=== PATIENT | male | born 1965 | race Caucasian/White ===

== ENCOUNTER 2016-11-04 09:40 | Inpatient (IN) | payer OTHER ==
[2016-11-04 09:59] LABS: #Eosinphils 0.1 thou/uL (0.0-0.7); #Lymphocytes 2.5 thou/uL (1.20-3.40); #Monocytes 0.7 thou/uL (0.11-0.59); #Neutrophils 9.2 thou/uL (1.40-6.50); %Basophils 0.1 % (0.0-1.0); %Eosinophils 1.1 % (0.0-10.0); %Lymphocytes 19.8 % (21.0-51.0); %Monocytes 5.5 % (0.0-10.0); Hematocrit 46.7 % (42.0-52.0); Mean Platelet Volume 6.2 fL (7.4-10.4); Red Blood Cell (RBC) Count 5.15 mill/uL (4.70-6.10); White Blood Cell (WBC) Count 12.5 thou/uL (4.8-10.8)
[2016-11-04 10:21] LABS: ALT (SGPT) 68 U/L (8-55); AST (SGOT) 54 U/L (5-34); Alkaline Phosphatase 64 U/L (40-150); Anion Gap 14 mmol/L (10-20); BUN (Urea Nitrogen) 16 mg/dL (8.9-20.6); Bilirubin, Total 0.5 mg/dL (0.2-1.2); Calc. Creatinine Clearance 0 mL/min (70-130); Calcium 8.9 mg/dL (7.8-10.44); Carbon Dioxide 21 mmol/L (22-29); Chloride 108 mmol/L (98-107); Estimated GFR-MDRD 73; Globulin 3.2 g/dL (2.4-3.5); Protein, Total 7.1 g/dL (6.0-8.3)
[2016-11-04] MEDS ORDERED: Ketorolac Tromethamine 30 MG/ML VIAL ONE ×2 (11:01→13:02)
[2016-11-04] MEDS ORDERED: Acetaminophen 500 MG TAB ONE (11:01)
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
[2016-11-04] MEDS ORDERED: Lidocaine 2% PF 10 ML AMP (For Epidural Use) ONE (11:53)
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
[2016-11-04] MEDS ORDERED: Neomycin-Polymyxin 1 ML AMP ONE ×2 (12:26→14:23)
[2016-11-04] MEDS ORDERED: Fentanyl 100 MCG/2 ML VIAL ONE ×2 (12:31→13:36)
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
--- NOTE | 2016-11-04 12:38 | RAD ---
LEFT ANKLE 2 VIEWS: Date: 11/04/16 HISTORY: Deformity. COMPARISON: None. FINDINGS: Comminuted, possibly open, extraarticular distal fibular and tibial metadiaphyseal fractures with an terior displacement one shaft width, and mild valgus angulation. Ankle mortise appears to be congrue nt. IMPRESSION: Likely open, comminuted, displaced tibial and fibular fractures. POS: CET
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
[2016-11-04] MEDS ORDERED: Ondansetron HCl/PF 4 MG/2 ML Vial ONE (13:02)
[2016-11-04] MEDS ORDERED: Succinylcholine Chloride 20 MG/ML 10 ml SYRINGE FS ONE (13:02)
[2016-11-04] MEDS ORDERED: Dexamethasone 20 MG/5 ML VIAL ONE (13:02)
[2016-11-04] MEDS ORDERED: Glycopyrrolate 0.2 MG/ML 5 ML SYRINGE ONE (13:02)
[2016-11-04] MEDS ORDERED: Propofol 200 MG/20 ML VIAL ONE (13:02)
[2016-11-04] MEDS ORDERED: Lidocaine 1% PF 5 ML VIAL ONE (13:02)
[2016-11-04] MEDS ORDERED: Dextrose 5% in Water 1,000 ML IV PRN (13:45)
[2016-11-04] MEDS ORDERED: Ondansetron ODT 4 MG TAB PO PRN (13:45)
[2016-11-04] MEDS ORDERED: Ondansetron HCl/PF 4 MG/2 ML Vial IVP PRN ×2 (13:45→14:25)
[2016-11-04] MEDS ORDERED: Rib Fracture Protocol PO SCH (13:45)
[2016-11-04] MEDS ORDERED: Dextrose 50% Abboject 50 ML SYRINGE SLOW IVP PRN (13:45)
[2016-11-04] MEDS ORDERED: Bupivacaine HCl 0.5%/Epinephrine 1:200,000/PF 30 ml Vial ONE (14:23)
[2016-11-04] MEDS ORDERED: Promethazine HCl 25 MG/ML VIAL IM PRN (14:25)
[2016-11-04] MEDS ORDERED: Meperidine HCl/PF 25 MG/ML VIAL SLOW IVP PRN (14:25)
[2016-11-04] MEDS ORDERED: HYDROmorphone 2 MG/ML VIAL SLOW IVP PRN (14:25)
[2016-11-04] MEDS ORDERED: Promethazine HCl 25 MG/ML VIAL SLOW IVP PRN (14:25)
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
[2016-11-04] MEDS ORDERED: Cyclobenzaprine 10 MG TAB PO PRN (15:00)
--- NOTE | 2016-11-04 15:31 | OP ---
DATE OF OPERATION: 11/04/2016 PREOPERATIVE DIAGNOSIS: Comminuted distal shaft fracture on the left tibia and fibula, grade I open . POSTOPERATIVE DIAGNOSIS: Comminuted distal shaft fracture on the left tibia and fibula, grade I ope n. PROCEDURES PERFORMED: 1. Irrigation and debridement of the left leg. 2. Open reduction internal fixation of the left distal tibial shaft. SURGEON: Richy Zurita M.D. ANESTHESIA: General. TECHNIQUE: The patient was given preoperative IV antibiotics, taken to the operating room, placed i n supine position. Satisfactory general anesthesia was performed. The left lower extremity was akilah rilely prepped and draped in the usual fashion. After exsanguination of the tourniquet, the left th igh was raised to 300 mmHg. The patient had a 1 cm laceration on the medial aspect of the leg just anterior to the Achilles tendon region. This was opened up for a total of 2 cm as very close to the comminuted fracture of the tibial shaft and did constitute grade I open injury. This wound was surgical endoscopist iously irrigated with antibiotic solution using the high-speed call center director. A longitudinal incision w as then made on the medial aspect of the leg over the medial aspect of the tibia and the fracture ar ea along with the other 2 cm laceration again was copiously irrigated with the antibiotic solution w ith a high speed call center director. There was comminution of the tibial shaft fracture. The fractures were reduced. The fragments were put together and a 6-hole distal tibial medial Synthes locking plate w as placed over the medial aspect of the tibia and held there with 2 bone clamps and then initially i nternally fixed with two 3.5 cortical screws proximally and two 2.7 locking screws distally. This w as all performed under fluoroscopic visualization. Once it was verified that the fractures were in good alignment, additional 3.5 locking screws were placed in the shaft and additional 2.7 locking sc rews were placed distally. The comminuted fracture was bone grafted with 10 mL of bone putty along with the fragments of bone that were from the tibia. The wounds were then closed using 0 Vicryl for the fat and subcutaneous tissue, and the skin was closed with 3-0 Rapide. The wounds were then inf iltrated with 30 mL of 0.5% Marcaine with epinephrine. Sterile dressing was applied. Tourniquet wa s released. The patient was placed in a boot. He was awakened, extubated, and transferred to the r ecovery room in stable condition. ESTIMATED BLOOD LOSS: 100 mL COMPLICATIONS: None. TOURNIQUET TIME: 63 minutes.
[2016-11-04] MEDS: Gabapentin 300 MG CAP PO SCH ×2 (16:25→21:32)
[2016-11-04] MEDS ORDERED: Iopamidol 370 76% 100 ML VIAL ONE (16:47)
--- NOTE | 2016-11-04 17:17 | RAD ---
EXAM: INTRAOPERATIVE FLUOROSCOPY 11/04/16 HISTORY: Fracture. COMPARISON: 11/04/16 at 9:58 a.m. FINDINGS: Three intraoperative fluoroscopic views demonstrate placement of a metallic plate with screws at the level of the distal tibia. Fracture fragments are present. Mildly displaced distal fibula fracture is identified. EXPOSURE: 15.7 seconds. 0.3 mGy. IMPRESSION: Fluoroscopy as above. POS: LIV
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
[2016-11-04] MEDS: Acetaminophen 500 MG TAB PO SCH (18:08)
[2016-11-04] MEDS: traMADol HCl 50 MG TAB PO SCH (18:08)
[2016-11-04] MEDS: Ibuprofen 800 MG TAB PO SCH (18:08)
[2016-11-05] MEDS: traMADol HCl 50 MG TAB PO SCH ×5 (00:02→23:37)
[2016-11-05] MEDS: Ibuprofen 800 MG TAB PO SCH ×5 (00:02→23:36)
[2016-11-05] MEDS: Acetaminophen 500 MG TAB PO SCH ×5 (00:03→23:36)
[2016-11-05 05:54] LABS: #Lymphocytes 1.1 thou/uL (1.20-3.40); #Monocytes 1.1 thou/uL (0.11-0.59); #Neutrophils 8.5 thou/uL (1.40-6.50); %Basophils 0.1 % (0.0-1.0); %Eosinophils 0.2 % (0.0-10.0); %Lymphocytes 10.2 % (21.0-51.0); %Monocytes 10.1 % (0.0-10.0); Hematocrit 37.6 % (42.0-52.0); Mean Platelet Volume 6.9 fL (7.4-10.4); White Blood Cell (WBC) Count 10.7 thou/uL (4.8-10.8)
[2016-11-05 06:20] LABS: Anion Gap 11 mmol/L (10-20); BUN (Urea Nitrogen) 14 mg/dL (8.9-20.6); Calc. Creatinine Clearance 0 mL/min (70-130); Calcium 8.7 mg/dL (7.8-10.44); Carbon Dioxide 25 mmol/L (22-29); Chloride 104 mmol/L (98-107); Estimated GFR-MDRD 67; Magnesium 1.9 mg/dL (1.6-2.6); Phosphorus 2.1 mg/dL (2.3-4.7)
[2016-11-05] MEDS: Gabapentin 300 MG CAP PO SCH ×3 (09:01→20:17)
[2016-11-05 09:05] VITALS: BMI 32.1
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
[2016-11-05] MEDS ORDERED: Docusate 100 MG CAP PO SCH (20:30)
[2016-11-05] MEDS ORDERED: Senokot 8.6 MG TAB PO SCH (20:30)
[2016-11-06] MEDS: Acetaminophen 500 MG TAB PO SCH ×2 (05:28→12:42)
[2016-11-06] MEDS: traMADol HCl 50 MG TAB PO SCH ×2 (05:28→12:42)
[2016-11-06] MEDS: Ibuprofen 800 MG TAB PO SCH (05:28)
[2016-11-06] MEDS: Gabapentin 300 MG CAP PO SCH ×2 (07:58→14:49)
[2016-11-06] MEDS ORDERED: Docusate 100 MG CAP PO SCH (09:00)
[2016-11-06] MEDS ORDERED: Senokot 8.6 MG TAB PO SCH (09:00)
[2016-11-06 12:27] VITALS: BP 126/76; TEMP 97.9
[2016-11-06] MEDS ORDERED: Ibuprofen 800 MG TAB PO SCH (14:00)
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
== END 2016-11-06 15:45 | disposition home or self-care (01) | DRG 493 ==
LOC: ERS 09:40 → SDC 12:17 → SURG A 16:00
PROVIDERS: ADMIT Surgery; ATTEND Surgery
PROC: 0QSH04Z Reposition Left Tibia with Internal Fixation Device, Open Approach (ICD-10-PCS; principal; 2016-11-04)
PROC: 0HQ1XZZ Repair Face Skin, External Approach (ICD-10-PCS; 2016-11-04)
DX: S82.842B Displaced bimalleolar fracture of left lower leg, initial encounter for open fracture type I or II (principal); S22.42XA Multiple fractures of ribs, left side, initial encounter for closed fracture; S02.32XA Fracture of orbital floor, left side, initial encounter for closed fracture; S02.40DA Maxillary fracture, left side, initial encounter for closed fracture; V23.4XXA Motorcycle driver injured in collision with car, pick-up truck or van in traffic accident, initial encounter; G89.11 Acute pain due to trauma; Z23 Encounter for immunization; S01.112A Laceration without foreign body of left eyelid and periocular area, initial encounter
CPT/HCPCS: 12013; 36415; 70450; 70486; 71260; 72125; 74177; 76001; 80048; 80053; 83735; 84100; 85025; 86850; 86900; 86901; 90471; 93005; 94640; 94760; 96374; 96375; 96376; C1713; C1768; G0390; G8978-GP-CK; G8979-GP-CJ; J0670; J1100; J1885; J2001; J2270; J2405; J2704; J3010; J7620

== ENCOUNTER 2016-11-09 17:48 | Inpatient (IN) | payer OTHER ==
[2016-11-09 19:15] LABS: #Eosinphils 0.3 thou/uL (0.0-0.7); #Lymphocytes 1.2 thou/uL (1.20-3.40); #Monocytes 0.4 thou/uL (0.11-0.59); #Neutrophils 3.6 thou/uL (1.40-6.50); %Basophils 0.6 % (0.0-1.0); %Eosinophils 4.8 % (0.0-10.0); %Lymphocytes 21.7 % (21.0-51.0); %Monocytes 6.7 % (0.0-10.0); Hematocrit 36.2 % (42.0-52.0); Red Blood Cell (RBC) Count 4.04 mill/uL (4.70-6.10); White Blood Cell (WBC) Count 5.5 thou/uL (4.8-10.8)
[2016-11-09 19:39] LABS: ALT (SGPT) 31 U/L (8-55); AST (SGOT) 32 U/L (5-34); Alkaline Phosphatase 62 U/L (40-150); Anion Gap 14 mmol/L (10-20); BUN (Urea Nitrogen) 16 mg/dL (8.9-20.6); Bilirubin, Total 0.7 mg/dL (0.2-1.2); Calc. Creatinine Clearance 0 mL/min (70-130); Calcium 9.5 mg/dL (7.8-10.44); Carbon Dioxide 27 mmol/L (22-29); Chloride 101 mmol/L (98-107); Estimated GFR-MDRD 66; Globulin 3.4 g/dL (2.4-3.5); Protein, Total 6.9 g/dL (6.0-8.3)
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
--- OUTSIDE RECORDS SUMMARY | 2016-11-09 21:18 | XMS | Clinical Summary ---
:1965 Author Organization [facility] Address [address] [place] [address] Phone Care Team Providers Name Role Phone , Primary Care Provider Unavailable Allergies Not on File Current Medications Not on file Active Problems Not on file Social History Tobacco Use Types Packs/Day Years Used Date Never Assessed Sex Assigned at Date Recorded Not on file Last Filed Vital Signs Not on file Plan of Treatment Not on file Results Not on filefrom Last 3 Months
[2016-11-09 21:22] LABS: Lactic Acid - Sepsis 1.5 mmol/L (0.5-2.2)
[2016-11-09] MEDS ORDERED: Acetaminophen 325 MG TAB PO PRN (21:42)
[2016-11-09] MEDS ORDERED: Ondansetron ODT 4 MG TAB SL PRN (21:42)
[2016-11-09] MEDS ORDERED: Ondansetron HCl/PF 4 MG/2 ML Vial IVP PRN ×2 (21:42→22:57)
[2016-11-09 21:59] VITALS: BMI 31.7
[2016-11-09] MEDS ORDERED: Dextrose 5% in Water 1,000 ML IV PRN (22:50)
[2016-11-09] MEDS ORDERED: Dextrose 50% Abboject 50 ML SYRINGE SLOW IVP PRN (22:50)
[2016-11-09] MEDS ORDERED: Ondansetron ODT 4 MG TAB PO PRN (22:57)
[2016-11-09] MEDS ORDERED: HYDROcodone/Acetaminophen 10/325 mg Tablet PO PRN (22:57)
[2016-11-09] MEDS ORDERED: traMADol HCl 50 MG TAB PO PRN (23:08)
[2016-11-09] MEDS: Acetaminophen 500 MG TAB PO SCH (23:17)
[2016-11-09] MEDS: traMADol HCl 50 MG TAB PO PRN (23:20)
[2016-11-09] MEDS: Piperacillin/Tazobactam 3.375 GM in Sodium Chloride 0.9% 100 ML IVPB SCH (23:31)
[2016-11-10] MEDS: Ibuprofen 800 MG TAB PO SCH ×3 (00:02→16:09)
[2016-11-10] MEDS: Acetaminophen 500 MG TAB PO SCH ×4 (05:15→22:28)
[2016-11-10] MEDS: Piperacillin/Tazobactam 3.375 GM in Sodium Chloride 0.9% 100 ML IVPB SCH ×3 (05:15→17:38)
[2016-11-10] MEDS: traMADol HCl 50 MG TAB PO PRN (05:16)
[2016-11-10 05:57] LABS: #Eosinphils 0.2 thou/uL (0.0-0.7); #Lymphocytes 1.3 thou/uL (1.20-3.40); #Monocytes 0.6 thou/uL (0.11-0.59); #Neutrophils 3.5 thou/uL (1.40-6.50); %Basophils 0.2 % (0.0-1.0); %Eosinophils 4.5 % (0.0-10.0); %Lymphocytes 23.3 % (21.0-51.0); Hematocrit 33.6 % (42.0-52.0); Mean Platelet Volume 6.3 fL (7.4-10.4); Red Blood Cell (RBC) Count 3.74 mill/uL (4.70-6.10); White Blood Cell (WBC) Count 5.6 thou/uL (4.8-10.8)
[2016-11-10 06:22] LABS: Anion Gap 9 mmol/L (10-20); BUN (Urea Nitrogen) 13 mg/dL (8.9-20.6); Calc. Creatinine Clearance 128 mL/min (70-130); Calcium 8.8 mg/dL (7.8-10.44); Carbon Dioxide 30 mmol/L (22-29); Chloride 104 mmol/L (98-107); Estimated GFR-MDRD 89
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
--- NOTE | 2016-11-10 09:26 | RAD ---
CHEST 1 VIEW: HISTORY: Dyspnea. Followup. COMPARISON: 11/09/16. FINDINGS: Cardiac silhouette is magnified and upper limits of normal in size. Pulmonary vasculature is within normal limits. Streaky opacity of each base is unchanged in appearance from the previous exam. Up per lobes remain clear. No evidence of pneumothorax. IMPRESSION: Stable streaky parenchymal opacity at each lung base. Continued radiographic followup is suggested. POS: [facility]
[2016-11-10] MEDS: Famotidine 20 MG TAB PO SCH ×2 (09:35→21:13)
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
[2016-11-10] MEDS: traMADol HCl 50 MG TAB PO SCH ×3 (13:55→21:16)
[2016-11-10] MEDS: Vancomycin HCl 1.5 GM, Admixture Fee 1 EACH in Sodium Chloride 0.9% 250 ML 300 ML IVPB SCH ×2 (14:57→22:28)
[2016-11-10] MEDS: Gabapentin 300 MG CAP PO SCH ×2 (16:09→21:13)
[2016-11-10] MEDS ORDERED: Vancomycin HCl 1.5 GM, Admixture Fee 1 EACH in Sodium Chloride 0.9% 250 ML 300 ML IVPB SCH (21:00)
[2016-11-11] MEDS: Ibuprofen 800 MG TAB PO SCH ×4 (00:34→23:18)
[2016-11-11] MEDS: Piperacillin/Tazobactam 3.375 GM in Sodium Chloride 0.9% 100 ML IVPB SCH ×4 (00:35→19:27)
[2016-11-11] MEDS: Cyclobenzaprine 10 MG TAB PO PRN (00:56)
[2016-11-11] MEDS: traMADol HCl 50 MG TAB PO SCH ×5 (06:35→23:18)
[2016-11-11] MEDS: Acetaminophen 500 MG TAB PO SCH ×4 (06:35→23:18)
[2016-11-11] MEDS: Gabapentin 300 MG CAP PO SCH ×3 (11:41→20:22)
[2016-11-11] MEDS: Famotidine 20 MG TAB PO SCH ×2 (11:41→20:22)
[2016-11-11] MEDS: Vancomycin HCl 1.5 GM, Admixture Fee 1 EACH in Sodium Chloride 0.9% 250 ML 300 ML IVPB SCH ×2 (12:05→23:10)
[2016-11-11] MEDS: traMADol HCl 50 MG TAB PO PRN ×2 (12:12→20:23)
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
[2016-11-11 22:25] LABS: Vancomycin, Trough 15.1 ug/mL
[2016-11-12] MEDS: Piperacillin/Tazobactam 3.375 GM in Sodium Chloride 0.9% 100 ML IVPB SCH ×4 (01:44→19:49)
[2016-11-12] MEDS: traMADol HCl 50 MG TAB PO PRN ×3 (02:55→14:41)
[2016-11-12] MEDS: Cyclobenzaprine 10 MG TAB PO PRN (02:55)
[2016-11-12 05:58] LABS: #Eosinphils 0.2 thou/uL (0.0-0.7); #Lymphocytes 1.2 thou/uL (1.20-3.40); #Monocytes 0.5 thou/uL (0.11-0.59); #Neutrophils 3.1 thou/uL (1.40-6.50); %Basophils 0.3 % (0.0-1.0); %Eosinophils 4.8 % (0.0-10.0); %Lymphocytes 24.8 % (21.0-51.0); %Monocytes 9.2 % (0.0-10.0); Hematocrit 33.5 % (42.0-52.0); Mean Platelet Volume 5.7 fL (7.4-10.4); Red Blood Cell (RBC) Count 3.74 mill/uL (4.70-6.10)
[2016-11-12] MEDS: traMADol HCl 50 MG TAB PO SCH ×4 (06:55→21:49)
[2016-11-12] MEDS: Acetaminophen 500 MG TAB PO SCH ×4 (06:56→23:18)
[2016-11-12] MEDS: Ibuprofen 800 MG TAB PO SCH ×3 (08:17→23:19)
[2016-11-12] MEDS: Gabapentin 300 MG CAP PO SCH ×3 (08:17→21:47)
[2016-11-12] MEDS: Famotidine 20 MG TAB PO SCH ×2 (08:17→21:47)
[2016-11-12] MEDS: Enoxaparin Sodium 30 MG/0.3 ML SYRINGE SC SCH ×2 (08:18→21:47)
[2016-11-12] MEDS: Vancomycin HCl 1.5 GM, Admixture Fee 1 EACH in Sodium Chloride 0.9% 250 ML 300 ML IVPB SCH ×2 (10:33→23:18)
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
[2016-11-13] MEDS: Piperacillin/Tazobactam 3.375 GM in Sodium Chloride 0.9% 100 ML IVPB SCH ×2 (02:52→08:46)
[2016-11-13] MEDS: traMADol HCl 50 MG TAB PO SCH ×2 (05:57→11:14)
[2016-11-13] MEDS: Acetaminophen 500 MG TAB PO SCH ×2 (05:57→11:14)
[2016-11-13] MEDS: Ibuprofen 800 MG TAB PO SCH (08:27)
[2016-11-13] MEDS: Enoxaparin Sodium 30 MG/0.3 ML SYRINGE SC SCH (08:27)
[2016-11-13] MEDS: Gabapentin 300 MG CAP PO SCH (08:28)
[2016-11-13] MEDS: Famotidine 20 MG TAB PO SCH (08:28)
[2016-11-13 10:26] LABS: Vancomycin, Trough 13.6 ug/mL
[2016-11-13] MEDS ORDERED: Vancomycin HCl 1.75 GM in Sodium Chloride 0.9% 500 ML IVPB SCH (11:00)
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
[2016-11-13 16:13] VITALS: BP 128/73; TEMP 97.8
== END 2016-11-13 18:19 | disposition home or self-care (01) | DRG 863 ==
LOC: ERS 17:48 → OBSVTOIN 20:45 → SJJU 20:45
PROVIDERS: ADMIT Specialist; ATTEND Specialist
DX: T81.4XXA Infection following a procedure, initial encounter (principal); L03.116 Cellulitis of left lower limb; G89.11 Acute pain due to trauma; S82.832E Other fracture of upper and lower end of left fibula, subsequent encounter for open fracture type I or II with routine healing; S82.252E Displaced comminuted fracture of shaft of left tibia, subsequent encounter for open fracture type I or II with routine healing; S22.42XD Multiple fractures of ribs, left side, subsequent encounter for fracture with routine healing; V23.4XXD Motorcycle driver injured in collision with car, pick-up truck or van in traffic accident, subsequent encounter; F17.290 Nicotine dependence, other tobacco product, uncomplicated; Z83.3 Family history of diabetes mellitus
CPT/HCPCS: 36415; 71010; 71020; 80048; 80053; 80202; 83605; 85025; 87040; 96365; A4216; G8978-GP-CI; G8979-GP-CI; G8980-GP-CI; G8987-GO-CJ; G8988-GO-CJ; G8989-GO-CJ; J1650; J2543; J3370; J7050

== ENCOUNTER 2016-11-21 13:42 | Outpatient (CLI) | payer OTHER ==
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
== END 2016-11-21 13:43 | disposition home or self-care (01) ==
LOC: RAD 13:42
PROVIDERS: ATTEND Surgery
DX: S22.42XA Multiple fractures of ribs, left side, initial encounter for closed fracture (principal); J98.11 Atelectasis
CPT/HCPCS: 71020

== ENCOUNTER 2017-05-23 15:48 | Outpatient (CLI) | payer OTHER ==
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
== END 2017-05-23 15:49 | disposition home or self-care (01) ==
LOC: SCSCT 15:48
PROVIDERS: ATTEND Otolaryngology Pediatric Otolaryngology
DX: H90.5 Unspecified sensorineural hearing loss (principal)
CPT/HCPCS: 70480

== ENCOUNTER 2021-09-16 14:17 | Emergency (ER) | payer BC ==
[2021-09-16 16:17] LABS: #Eosinphils 0.1 thou/uL (0.0-0.7); #Lymphocytes 1.6 thou/uL (1.20-3.40); #Monocytes 0.8 thou/uL (0.11-0.59); #Neutrophils 8.3 thou/uL (1.40-6.50); %Basophils 0.1 % (0.0-1.0); %Lymphocytes 14.5 % (21.0-51.0); %Monocytes 7.4 % (0.0-10.0); Hemoglobin 14.6 g/dL (14.0-18.0); Mean Corpuscular HGB CONC 33.7 g/dL (32.0-36.0); Mean Corpuscular Hemoglobin 29.8 pg (27.0-31.0); Mean Corpuscular Volume 88.4 fL (78.0-98.0); Mean Platelet Volume 6.6 fL (7.4-10.4); Platelet Count 248 thou/uL (130-400); Red Blood Cell (RBC) Count 4.91 mill/uL (4.70-6.10); White Blood Cell (WBC) Count 10.8 thou/uL (4.8-10.8)
[2021-09-16 16:47] LABS: ALT (SGPT) 20 U/L (8-55); AST (SGOT) 13 U/L (5-34); Albumin 4.3 g/dL (3.5-5.0); Alkaline Phosphatase 65 U/L (40-110); Anion Gap 12 mmol/L (10-20); BUN (Urea Nitrogen) 10 mg/dL (8.4-25.7); Bilirubin, Total 0.7 mg/dL (0.2-1.2); Calc. Creatinine Clearance 0 mL/min (70-130); Calcium 9.5 mg/dL (7.8-10.44); Carbon Dioxide 25 mmol/L (22-29); Chloride 106 mmol/L (98-107); Estimated GFR 75; Globulin 3.2 g/dL (2.4-3.5); Glucose 92 mg/dL (70-105); Potassium 4.2 mmol/L (3.5-5.1); Protein, Total 7.5 g/dL (6.0-8.3); Sodium 139 mmol/L (136-145)
[2021-09-16 17:55] LABS: Bacteria/HPF Rare-Few HPF (None Seen); Bilirubin Negative (Negative); Blood, Urine 3+ (Negative); Clarity Turbid (Clear); Glucose, Urine (Dipstick) Normal (Negative); Ketone, Urine Negative (Negative); Leukocyte 500 Leu/uL (Negative); Nitrite Negative (Negative); Protein, Urine (Dipstick) 30 mg/dL (Neg-Trace); RBC/HPF Greater than 50 HPF (0-3); Specific Gravity, Urine 1.022 (1.002-1.036); Squamous Epithelial None Seen HPF (0-3); Urobilinogen Normal mg/dL (Less than 2); WBC/HPF Greater than 50 HPF (0-3); pH, Urine 6.5 (5.0-9.0)
[2021-09-17 15:54] LABS: Chlam.trachomatis by PCR,Urine Not Detected (NotDetected)
== END 2021-09-16 18:12 | disposition home or self-care (01) ==
LOC: ERS 14:17
DX: N39.0 Urinary tract infection, site not specified (principal); R31.9 Hematuria, unspecified
CPT/HCPCS: 36415; 74176; 80053; 81003; 81015; 83690; 85025; 87077; 87086; 87186; 87491; 87591

== ENCOUNTER 2021-10-18 10:42 | Outpatient (CLI) | payer BC | END 2021-10-18 10:43 | disposition home or self-care (01) | LOC: SCSRAD 10:42 | PROVIDERS: ATTEND Family Medicine | DX: M54.2 Cervicalgia (principal); M47.812 Spondylosis without myelopathy or radiculopathy, cervical region | CPT/HCPCS: 72040 ==